=== PATIENT | female | born 1980 | race Caucasian/White ===

== ENCOUNTER 2024-06-08 19:33 | Emergency (ER) | payer MEDICAID, OTHER ==
[~2024-06-08] VITALS: Ht 165.1 cm; Wt 68.2 kg
[2024-06-08] MEDS: hyDRALAzine 10mg tablet PO ONE (20:17)
[2024-06-08 20:35] VITALS: BP 197/126; PULSE 87; RESP 16; TEMP 98.4; O2SAT 100
[2024-06-09] MEDS ORDERED: hyDRALAzine 10mg tablet PO SCH
== END 2024-06-08 20:39 | disposition home or self-care (01) ==
LOC: ER 19:33
DX: I10 Essential (primary) hypertension (principal)
CPT/HCPCS: 99283